=== PATIENT | male | born 1955 | race Caucasian/White ===

== ENCOUNTER → 2017-01-08 | Outpatient (CLI) | payer BC ==
[~2017-01-08] MED LIST: ASPI-435 PO; BRIM0.1S OPB; CHOL200027 PO; GABA-113 PO; GABA600T PO; LEVO125T5 PO; NRN600 PO; PRVC/40 PO; TEST1SOL TOP; [UNRECOGNIZED DRUG - OTHER] PO; [UNRECOGNIZED DRUG - REMARK] SC; desmopressin PO
[2017-01-08 11:08] LABS: BASO % 0.6 %; BASO ABS # 0.05 K/uL (0-0.2); COMPLETE YES; EOS % 1.9 %; HEMATOCRIT 43.2 % (42-52); IG% 0.1 %; LYMPH % 19.9 %; LYMPH ABS # 1.54 K/uL (1.2-3.4); MEAN CELL VOLUME 91.3 fL (80-100); MEAN CORPUSCULAR HEMOGLOBIN 30.4 pg (25-34); MEAN CORPUSCULAR HGB CONC 33.3 g/dl (32-36); MEAN PLATELET VOLUME 11.2 fL (7.4-10.4); MONO % 7.5 %; PLATELET COUNT 268 K/uL (130-400); RED BLOOD COUNT 4.73 M/uL (4.7-6.1); WHITE BLOOD COUNT 7.75 K/uL (4.8-10.8)
[2017-01-08 11:18] LABS: ALT/SGPT 29 U/L (12-78); AST/SGOT 16 U/L (15-37); BLOOD UREA NITROGEN 20 mg/dl (7-18); BUN/CREATININE RATIO 14.4 (10-20); CARBON DIOXIDE 28 mmol/L (21-32); CHLORIDE 107 mmol/L (98-107); CHOLESTEROL 187 mg/dl (0-200); ESTIMATED AVERAGE GLUCOSE 114 mg/dl; GLUCOSE 124 mg/dl (70-99); HA1C FLAG Normal (Normal); POTASSIUM 4.1 mmol/L (3.5-5.1); SODIUM 142 mmol/L (136-145); TRIGLYCERIDES 192 mg/dl (0-150); VERY LOW DENSITY LIPOPROT CALC 38 mg/dl
[2017-01-08 11:22] LABS: ALB/GLOB RATIO 1.2 (0.9-2); ALKALINE PHOSPHATASE 60 U/L (45-117); CHOLESTEROL/HDL RATIO 2.9; FERRITIN 162.9 ng/ml (8.0-388.0); HDL CHOLESTEROL 65 mg/dl; LDL CHOLESTEROL CALCULATED 84 mg/dl; PROSTATE SPECIFIC ANTIGEN 0.266 ng/ml (0.000-4.000)
[2017-01-08 11:24] LABS: CALCIUM 9.1 mg/dl (8.5-10.1)
--- NOTE | 2017-01-13 09:54 | CODING QUERY MEDICAL NECESSITY ---
CQSUPPORTING DIAGNOSIS NEEDED A supporting diagnosis is required for the test/procedure performed on this patient in order for us to be reimbursed by the patient's insurance. Please provide a supporting diagnosis for the following test/procedure listed below next to the test name along with your signature. *If there is no additional diagnosis for this patient that would support the following test/procedure please document that below next to the test/procedure. Test(s)/Procedure(s) that require a supporting diagnosis: DOS 01/08/17 PROSTATE SPECIFIC TEST (PSA) Provider Signature: Date: Thank you Valentina [facility] Information Management Once completed, please kindly fax back to [phone] For questions please call [phone]
[2017-01-16 01:29] LABS: TESTOSTERONE,TOTAL 564 ng/dL (250-1100)
== END | disposition home or self-care (01) ==
LOC: C.LABBC 07:22
PROVIDERS: ATTEND Internal Medicine
DX: E23.2 Diabetes insipidus (principal); E23.0 Hypopituitarism; R73.9 Hyperglycemia, unspecified; E78.5 Hyperlipidemia, unspecified; E55.9 Vitamin D deficiency, unspecified; D64.9 Anemia, unspecified; Z12.5 Encounter for screening for malignant neoplasm of prostate

== ENCOUNTER → 2017-02-20 | Outpatient (CLI) | payer BC ==
--- NOTE | 2017-02-25 09:40 | CODING QUERY MEDICAL NECESSITY ---
SUPPORTING DIAGNOSIS NEEDED A supporting diagnosis is required for the test/procedure performed on this patient in order for us to be reimbursed by the patient's insurance. Please provide a supporting diagnosis for the following test/procedure listed below next to the test name along with your signature. *If there is no additional diagnosis for this patient that would support the following test/procedure please document that below next to the test/procedure. Test(s)/Procedure(s) that require a supporting diagnosis: * DXA, BONE DENSITY AXIAL DIAGNOSIS: Provider Signature: Date: Thank you Lucina [employer] Information Management Once completed, please kindly fax back to [phone] For questions please call [phone]
== END | disposition home or self-care (01) ==
LOC: C.MAMM 12:58
PROVIDERS: ATTEND Internal Medicine Endocrinology, Diabetes & Metabolism
DX: E55.9 Vitamin D deficiency, unspecified (principal)

== ENCOUNTER → 2017-02-25 | Outpatient (CLI) | payer BC ==
[2017-03-03 14:18] LABS: ILGF1 Z SCORE MALE -0.8 SD (-2.0 - +2.0)
== END | disposition home or self-care (01) ==
LOC: C.LABPVFM 14:57
PROVIDERS: ATTEND Internal Medicine Endocrinology, Diabetes & Metabolism
DX: D49.7 Neoplasm of unspecified behavior of endocrine glands and other parts of nervous system (principal); E23.0 Hypopituitarism

== ENCOUNTER 2017-12-01 05:34 | Observation (INO) | payer BC, SELFPAY ==
[2017-11-20 08:46] VITALS: BMI 27.0
--- NOTE | 2017-11-20 09:24 | PAT Medication Instructions ---
Service Date Nov 20, 2017. Current Home Medication List Aspirin (Aspirin 81), 1 TAB PO QAM Brimonidine Tartrate (Alphagan P Oph), 1 DROP OPB BID Cholecalciferol (Vitamin D-3), 5,000 UNITS PO QAM Desmopressin Acetate (Ddavp), 0.4 MG PO QAM Hydrocortisone 2.5% (Rectal) (Anusol-Hc 2.5%), 1 APPLN TOP BID PRN for PRN Levothyroxine Sodium (Levothyroxine Sodium), 125 MCG PO QAM Pravastatin Sod (Pravastatin Sodium), 40 MG PO QAM Somatropin (Humatrope), 0.3 MG INH QAM Timolol Maleate (Timolol 0.5% Oph Soln 15 Ml), 1 DROP OPL QAM [Axiron], 1 DOSE TP for AM [Hydrocortisone], 20 MG PO QAM Medication Instructions For Your Scheduled Surgery -Follow your surgeon's instructions for: Aspirin (Aspirin 81), 1 TAB PO QAM -Contact your director of conservation for: Desmopressin Acetate (Ddavp), 0.4 MG PO QAM Somatropin (Humatrope), 0.3 MG INH QAM [Hydrocortisone], 20 MG PO QAM - Hold the following medications 24 hours prior to surgery: [Axiron], 1 DOSE TP for AM Hydrocortisone 2.5% (Rectal) (Anusol-Hc 2.5%), 1 APPLN TOP BID PRN for PRN - Hold the following medications the morning of surgery: Cholecalciferol (Vitamin D-3), 5,000 UNITS PO QAM - Take the following medications the morning of surgery with a sip of water: Brimonidine Tartrate (Alphagan P Oph), 1 DROP OPB BID Levothyroxine Sodium (Levothyroxine Sodium), 125 MCG PO QAM Pravastatin Sod (Pravastatin Sodium), 40 MG PO QAM Timolol Maleate (Timolol 0.5% Oph Soln 15 Ml), 1 DROP OPL QAM - Take the following medications as scheduled the night before surgery: Brimonidine Tartrate (Alphagan P Oph), 1 DROP OPB BID If you have any questions please call us at [phone] or [phone] or [phone]
[2017-11-20 10:28] LABS: BASO % 0.4 %; BASO ABS # 0.03 K/uL (0-0.2); EOS ABS # 0.36 K/uL (0-0.5); HEMATOCRIT 40.8 % (42-52); IG# 0.01 K/uL (0.00-0.02); LYMPH % 19.5 %; LYMPH ABS # 1.42 K/uL (1.2-3.4); MEAN CELL VOLUME 89.9 fL (80-100); MEAN CORPUSCULAR HEMOGLOBIN 30.8 pg (25-34); MEAN CORPUSCULAR HGB CONC 34.3 g/dl (32-36); MEAN PLATELET VOLUME 10.5 fL (7.4-10.4); MONO % 6.7 %; MONO ABS # 0.49 K/uL (0.11-0.59); NEUT % 68.3 %; NEUT ABS # 4.96 K/uL (1.4-6.5); PLATELET COUNT 237 K/uL (130-400); RED CELL DISTRIBUTION WIDTH SD 42.3 fL (36.4-46.3); WHITE BLOOD COUNT 7.27 K/uL (4.8-10.8)
[2017-11-20 10:36] LABS: PTT PATIENT 26.5 SECONDS (21.0-31.0)
[2017-11-20 13:16] LABS: CREATININE 1.09 mg/dl (0.60-1.40)
[2017-11-20 13:17] LABS: CALCIUM 8.6 mg/dl (8.5-10.1); POTASSIUM 4.3 mmol/L (3.5-5.1)
[~2017-12-01] VITALS: Ht 175.3 cm; Wt 82.6 kg
[2017-12-01] VITALS (11 sets, daily range): BP systolic 101–143; BP diastolic 63–94; PULSE 73–100; TEMP 36.2–37.1; O2SAT 94–99; Ht 175.3 cm; Wt 82.6 kg
[~2017-12-01 05:34] MED LIST changes: +AXIRON TP; +DESM1TAB16 PO; -GABA-113 PO; -GABA600T PO; +HYDR2.5C37 TOP; +HYDROCORTISONE PO; -NRN600 PO; +SOMA6INJ INH; -TEST1SOL TOP; +TMPOPS15 OPL; -[UNRECOGNIZED DRUG - OTHER] PO; -[UNRECOGNIZED DRUG - REMARK] SC; -desmopressin PO
[2017-12-01] MEDS ORDERED: LACTATED RINGER'S 1000ML 1,000 ML IV SCH (06:00)
[2017-12-01] MEDS ORDERED: ACETAMINOPHEN 1000 MG/100 ML IV IV ONE (06:48)
[2017-12-01] MEDS ORDERED: FENTANYL CITRATE INJ 50 MCG/1 ML 2 ML VIAL ONE ×2 (06:49→16:30)
[2017-12-01] MEDS ORDERED: MIDAZOLAM HCL 1 MG/ML 2ML VIAL ONE ×2 (06:49→16:30)
[2017-12-01] MEDS ORDERED: LIDOCAINE HCL 2% 2 ML VIAL (20MG/ML) ONE (06:49)
[2017-12-01] MEDS ORDERED: ONDANSETRON INJ 2 MG/ML 2 ML VIAL ONE ×3 (06:49→17:22)
[2017-12-01] MEDS ORDERED: PROPOFOL IV EMULSION 10 MG/ML 20 ML VIAL IV ONE (06:49)
[2017-12-01] MEDS ORDERED: HYDROmorphone INJ 2 MG/ML SYR/VIAL ONE (06:50)
[2017-12-01] MEDS ORDERED: METOCLOPRAMIDE HCL INJ 5 MG/ML 2 ML VIAL ONE (06:56)
[2017-12-01] MEDS ORDERED: LARYING-O-JET KIT (LTA) ONE (06:58)
[2017-12-01] MEDS ORDERED: SODIUM CHLORIDE 0.9% INJ 10 ML VIAL ONE (06:58)
--- NOTE | 2017-12-01 06:58 | History & Physical Bridge Note ---
H&P Re-Evaluation Bridge Note: I have examined the patient, reviewed the History & Physical and in the interval since the performance of the History & Physical I have noted the following changes of clinical significance: Patient requests cautery of several yuen angiomas of chest; consent amended with patient.
[2017-12-01] MEDS ORDERED: LIDOCAINE/EPINEPHRINE 1% 20 ML VIAL ONE ×3 (07:02→15:58)
[2017-12-01] MEDS ORDERED: POVIDONE-IODINE OP SOLN 30 ML BTL ONE (07:02)
[2017-12-01] MEDS ORDERED: BUPIVACAINE 0.25% 30 ML VIAL ONE ×2 (07:32→17:44)
[2017-12-01] MEDS ORDERED: PHENYLEPHRINE 100MCG/ML 5ML SYR ONE ×2 (08:08→17:22)
[2017-12-01] MEDS ORDERED: DiphenhydrAMINE HCL 50 MG/ML VIAL ONE (08:19)
[2017-12-01] MEDS ORDERED: RANITIDINE HCL 25 MG/ML INJ ONE (08:19)
[2017-12-01] MEDS ORDERED: EpHEDrine SULFATE 50MG/5ML SYR ONE ×2 (08:19→17:22)
[2017-12-01] MEDS ORDERED: FENTANYL CITRATE INJ 50 MCG/1 ML 2 ML VIAL IV PRN ×3 (08:30→18:45)
[2017-12-01] MEDS ORDERED: HYDROmorphone INJ 1 MG/ML SYR IV PRN ×3 (08:30→18:45)
[2017-12-01] MEDS ORDERED: ONDANSETRON INJ 2 MG/ML 2 ML VIAL IV PRN ×5 (08:30→18:45)
[2017-12-01] MEDS ORDERED: ATROPINE SULFATE 0.1 MG/ML 5ML SYR IV PRN ×3 (08:30→18:45)
[2017-12-01] MEDS ORDERED: EpHEDrine SULFATE INJ 50 MG/ML AMP IV PRN ×3 (08:30→18:45)
[2017-12-01] MEDS ORDERED: HYDROCORTISONE SOD SUCCINATE 100 MG/2 ML VIAL ONE (08:31)
[2017-12-01] MEDS ORDERED: LIDOCAINE HCL 1% 20 ML VIAL ONE (08:49)
[2017-12-01] MEDS ORDERED: EpINEphrine HCL INJ 1 MG/ML 1ML SYRINGE ONE ×2 (08:49→17:45)
[2017-12-01] MEDS ORDERED: GENTIAN VIOLET TOP SOLN DROP CHARGE TOP ONE (10:39)
[2017-12-01] MEDS ORDERED: NEOSTIGMINE METHYLSULFATE 5 MG/5 ML SYR ONE ×2 (10:47→17:22)
[2017-12-01] MEDS ORDERED: GLYCOPYRROLATE INJ 0.2 MG/ML VIAL ONE ×2 (10:47→17:22)
[2017-12-01] MEDS ORDERED: ROCURONIUM BROMIDE 10 MG/ML 5 ML VIAL IV ONE ×2 (10:47→17:22)
[2017-12-01] MEDS ORDERED: ARTIFICIAL TEARS OP OINT 3.5 GM TUBE ONE (10:47)
[2017-12-01] MEDS ORDERED: BACITRACIN OP OINT 3.5 GM TUBE TOP ONE (10:58)
[2017-12-01] MEDS ORDERED: SODIUM CHLORIDE 0.9% 1000ML 1,000 ML IV SCH (11:56)
--- NOTE | 2017-12-01 11:56 | [facility] Post Operative Brief Note ---
Immediate Operative Summary Operative Date Dec 01, 2017. Pre-Operative Diagnosis -Bilateral Correction Gynecomastia -Encounter For Cosmetic Surgery Post-Operative Diagnosis -Bilateral Correction Gynecomastia -Encounter For Cosmetic Surgery Procedure(s) Performed Bilateral Correction of Gynecomastia, Bilateral Lower Blepharoplasty, Excision of Skin Lesion from Right Baptist, Right Lateral Canthal Area, Right Glabella Area, Cautery of Chest Ramírez Angiomas Surgeon Dr. Alona Calderón Media Clerk Surgeon(s) Shani King PA-C Estimated Blood Loss 50mL Findings Consistent with Post-Op Diagnosis Specimens Fresh: A.) Left Breast Tissue B..) Right Breast Tissue - both specimens sent out of room to lab by [facility] OR micheal at 1032. C.) Facial ramírez hemangiomas Drains MICHAEL x2 Anesthesia Type General Complication(s) none Disposition Disposition: Recovery Room / PACU
[2017-12-01] MEDS ORDERED: METOCLOPRAMIDE HCL INJ 5 MG/ML 2 ML VIAL IV PRN (12:00)
[2017-12-01] MEDS ORDERED: ACETAMINOPHEN 325 MG TAB PO PRN ×2 (12:00→18:45)
[2017-12-01] MEDS ORDERED: OXYCODONE/ACETAMINOPHEN 5-325 TAB PO PRN ×4 (12:00→18:45)
--- NOTE | 2017-12-01 12:03 | Discharge Instructions ---
Discharge Instructions Date of Service Dec 01, 2017. Admission Reason for Admission: Gynecomastia, Idermatochalasis, Encounter For Cosm Discharge Discharge Diagnosis / Problem: gynecomastia, dermatochalasis Discharge Goals Goal(s): Decrease discomfort, Improve function Activity Recommendations Activity Limitations: per Instructions/Follow-up section ACTIVITY RECOMMENDATIONS: __Normal activities _x_No bending, lifting or straining. Keep head elevated when sleeping. __No driving __Driving allowed when you are off pain medications _x_Walking permitted __You should have help at home for ___ days DRESSINGS: __No dressings required _x_Keep dressings (on chest) dry/in place until first office visit. Must wear abdominal binder __Remove dressings ___ and leave dressings off _x_Apply ice _3__ days to eyes. 20 minutes on/20 minutes off while awake. Do not ice chest. __Remove dressings and reapply garment _x_Apply antibiotic ointment (bacitracin ophthalmic) to eyes 3-4 times/day until gone BATHING: _x_Keep dressings dry _x_Sponge bathing permitted __Showering permitted _x_No swimming, hot tubs or soaking in a tub MEDICATIONS: Resume previous medications unless instructed otherwise by your surgeon. _x_Do not use aspirin, Motrin, Advil or Ibuprofen as these may promote bleeding. Please use Tylenol. _x_Prescription(s) provided: pain medication and antibiotic eye ointment were prescribed for you OTHER INSTRUCTIONS: _x_Record drain output 2-3 times per day. Drains are ready to be removed when output is less than 10cc/24 hours SPECIAL CARE INSTRUCTIONS: * It is normal to have a mild fever after surgery. If your temperature is higher than 101.5 degrees F, please call the office at [phone]. * Constipation is a typical side effect of pain medication. An over-the- counter stool softener will help relieve this. * Leaking around surgical drains may occur and should not cause concern. Sometimes these drains become clogged. If this happens, remove the bulb and milk the clot out of the tube, then replace the bulb. * Drainage from wounds after liposuction is normal and should be expected. Garments will become soiled. You should protect furniture and bedding. This drainage should mostly subside within 2-3 days. Leave garments in place unless instructed to remove them. * If you have unusual drainage from a wound or are concerned you have an infection or have any questions or concerns, please call the office at [phone]. FOLLOW UP VISIT: If not already scheduled, please call the office, , when you return home after surgery to schedule an appointment to be seen in _2__ days. . Current Hospital Diet Patient's current hospital diet: Discharge Diet Recommended Diet: Regular Diet Procedures Procedures Performed: Bilateral Correction of Gynecomastia, Bilateral Lower Blepharoplasty, Excision of Skin Lesion from Right Advent, Right Lateral Canthal Area, Right Glabella Area, Cautery of Chest Ramírez Angiomas Pending Studies Studies pending at discharge: yes List of pending studies: pathology Medical Emergencies . Who to Call and When: Medical Emergencies: If at any time you feel your situation is an emergency, please call 911 immediately. . Non-Emergent Contact Non-Emergency issues call your: Primary Care Provider, Surgeon . "Provider Documentation" section prepared by Shani King. . [place] Drug Monitoring Program Search Results: no issues identified
--- NOTE | 2017-12-01 12:56 | Anesthesiology Progress Note ---
Anesthesia Post Op Note Date & Time Dec 01, 2017 at 12:56 Vital Signs Pain Intensity: 0 Vital Signs Past 12 Hours Date Time Temp Pulse Resp B/P (MAP) Pulse Ox O2 Delivery O2 Flow Rate FiO2 12/01/17 12:50 86 15 145/89 96 Room Air 12/01/17 12:40 88 11 145/95 94 Room Air 12/01/17 12:30 83 12 144/90 99 Oxymask 10 12/01/17 12:20 85 19 158/91 99 Oxymask 10 12/01/17 12:10 36.5 87 16 132/93 98 Oxymask 10 12/01/17 05:45 36.8 73 18 137/94 (108) 96 Room Air Notes Mental Status: alert / awake / arousable, participated in evaluation Pt Amnestic to Procedure: Yes Nausea / Vomiting: adequately controlled Pain: adequately controlled Airway Patency, RR, SpO2: stable & adequate BP & HR: stable & adequate Hydration State: stable & adequate Anesthetic Complications: no major complications apparent
--- NOTE | 2017-12-01 13:52 | Progress Note ---
Progress Note Date of Service Dec 01, 2017. Progress Note Post op check Called to see patient in PACU regarding nipple color. No complaints reported afebrile VSS Dressings clean, both NAC's pink and viable No hematomas noted JPs intact with minimal drainage Bilateral lower lid incisions intact Doing well Plan to discharge home
--- NOTE | 2017-12-01 14:35 | OPERATIVE REPORT ---
DATE OF OPERATION: 12/01/2017 PREOPERATIVE DIAGNOSES: Bilateral lower eyelid dermatochalasis, bilateral gynecomastia, multiple Ramírez angiomas face and chest, desire for cosmetic improvement. POSTOPERATIVE DIAGNOSES: Same. PROCEDURE: Bilateral correction of gynecomastia, bilateral lower blepharoplasty, excision of hemangiomas x4 of the face, cautery of Ramírez angiomas right chest x4. SURGEON: Dr. Alona Calderón. PHOTOGRAPHIC PROCESS SCREEN MAKER: Shani King PA-C. ANESTHESIA: General. COMPLICATIONS: None. INDICATION FOR THE PROCEDURE: The patient is a 62-year-old male who presented to my office desiring cosmetic improvement of the above-mentioned concerns. The procedure was reviewed including risks, benefits and the patient desired to proceed. BRIEF DESCRIPTION OF THE PROCEDURE: The patient was identified and marked in the preoperative holding area. He was brought to the operating room where he was positioned supine and placed under anesthesia without incident. Surgical site was prepped and draped sterilely. A time-out procedure was performed. I began with the chest. Surgical site was prepped and draped sterilely. I began with cautery of the 4 Ramírez angiomas of the chest using a needle tip cautery set at 20:20. Following this, 1% lidocaine with epinephrine was used to anesthetize the breast parenchyma as well as the planned infra-areolar incisions bilaterally. I began with the left side. A 15 blade scalpel was used to make the inferior areolar incision with small extension onto the chest bilaterally. Incision was deepened using electrocautery. I then began elevation of the nipple-areolar complex, leaving approximately 1 cm of breast tissue behind to provide some projection of the nipple. Underlying breast tissue was resected using electrocautery. I began by performing excision of the inferomedial and inferolateral quadrants of the breast using a lighted retractor and Allis clamp as well as electrocautery. Hemostasis was achieved throughout the dissection. I then began resection of the superior breast tissue taking care to leave about 1 cm of underlying fat and breast tissue underneath the skin to prevent contour deformities. Once I felt the residual breast parenchyma had been removed, I proceeded to do a similar procedure on the right side. However, following this portion of the procedure, I felt that while the breast tissue had been removed, there was a step off present in virtually all directions. Therefore, I elected to perform liposuction to help fan out this area and smooth out any contour irregularities surrounding the resection. I used a 67 mL of tumescent fluid on the left side and approximately 70 mL on the right side. A 2.4 mm liposuction cannula was used to pretunnel the surrounding areas in a radial fashion and then suction was applied. Approximately 75 mL were aspirated from each side. The inframammary fold was elevated using electrocautery. Hemostasis was assured with use of electrocautery. The wound was irrigated with saline. A 15-Citizen Of [place] Chuckie drain was placed in the wound bed and brought out through one of the liposuction access incisions. Sutured into place using 3-0 nylon suture. Wound was reapproximated using 3-0 Vicryl interrupted dermal sutures and 4-0 Monocryl running subcuticular suture. Following this procedure, there was good contour of the chest. The patient was placed in a seated position with excellent improvement. There was excellent improvement in contour and no discrete palpable excess tissue. The wound was closed similarly on the right side. Following this, [place] foam was placed for both surgical sites and an abdominal binder was placed around the chest. Drapes were removed and we then prepared for the lower blepharoplasty portion of the procedure. The surgical site was prepped and draped sterilely. A new time-out procedure was performed. I began by remarking the planned hemangioma excisions on the glabella, right lateral canthal area, and right pentecostal. These were each injected with 1% lidocaine with epinephrine. I marked the planned incisions on the lower lids. These were placed, 2 mm below and parallel to the ciliary margin with a short lateral canthal extension. Attention was first turned to the right eyelid. Corneal protectors were placed. The lower lid was infiltrated using 1% lidocaine with epinephrine. A 15 blade scalpel made the lateral aspect of the subciliary incision and the remainder of the incision was completed using a curved iris scissor. The skin muscle flap was then raised off the orbital septum, taking care to keep the pretarsal orbicularis muscle in place. This muscle flap was then raised to the level of the orbital septum. The septum was then incised to expose medial, central and lateral fat compartments. Fat was carefully teased out of each of this compartment taking care not to over resect. Once this was accomplished, the planned skin resection was marked. This was accomplished by redraping the lower lid skin over the septum and taking conservative strip of skin measuring about 2 mm. I elected to remove skin only at this portion and leave the septal orbicularis in place. Next, a lateral canthopexy was performed suspending the orbicularis muscle to the lateral orbital rim using 5-0 PDS mattress suture. After placing a canthopexy suture, I then proceeded to close the remainder of the lower eyelid incision with 6-0 nylon interrupted sutures. The same procedure was undertaken on the left lower lid. Following this, simple excision was performed of the above-mentioned lesions. This was accomplished using 15 blade scalpel to make a very small elliptical incision and these were resected with underlying subcutaneous fat. Hemostasis was achieved with needle tip cautery. Each of these wounds closed using two 6-0 nylon interrupted sutures. It should be noted that the electrocautery was turned onto a setting of 12 and 12 for the blepharoplasty and excision of the skin lesions. The procedure was tolerated well. Corneal protectors were removed. Eyes were irrigated with balanced salt solution. Ophthalmic ointment was placed in the incisions. The patient was awakened and transferred to recovery in satisfactory condition. I attest to the content of the Intraoperative Record and any orders documented therein. Any exception s are noted below.
--- NOTE | 2017-12-01 16:18 | History & Physical Bridge Note ---
H&P Re-Evaluation Bridge Note: I have examined the patient, reviewed the History & Physical and in the interval since the performance of the History & Physical I have noted the following changes of clinical significance: Plan was for patient to be discharged this afternoon; nurse notified me of expanding hematoma right chest when she checked on him prior to discharge. This occurred over a 30 minute period of time. On exam, there is a sizeable hematoma of the right breast with ecchymosis. Bedside exploration showed clot and bright red bleeding suggesting active bleed. Mild hypotension (78/60) resolved with fluid. Discussed with patient that best course of action is washout in OR to visualize whether there is active bleeding. He agrees.
[2017-12-01] MEDS ORDERED: PHENYLEPHRINE 100MCG/ML 5ML SYR IV PRN ×2 (17:15→18:45)
[2017-12-01] MEDS ORDERED: PROMETHAZINE HCL INJ 12.5 MG in SODIUM CHLORIDE 0.9% 50ML 50 ML IV PRN ×3 (17:15→18:45)
[2017-12-01] MEDS ORDERED: TISSEEL FIBRIN SEALANT 4ML TOP ONE (18:07)
--- NOTE | 2017-12-01 18:32 | [facility] Post Operative Brief Note ---
Immediate Operative Summary Operative Date Dec 01, 2017. Pre-Operative Diagnosis Right breast hematoma Post-Operative Diagnosis Right breast hematoma Procedure(s) Performed Exploration and washout of right breast hematoma Surgeon Dr. Calderón Instructor Decorating Surgeon(s) None Estimated Blood Loss 250ml Findings Consistent with Post-Op Diagnosis 250 cc hematoma clotted and active pectoralis muscle bleeder Specimens none Drains None replaced right MICHAEL Anesthesia Type General Complication(s) none Disposition Disposition: Recovery Room / PACU
[2017-12-01] MEDS ORDERED: DiphenhydrAMINE HCL 50 MG/ML VIAL IV PRN (18:45)
[2017-12-01] MEDS ORDERED: MoRPHine SULFATE 2 MG/ML CARP IV PRN (18:45)
[2017-12-01] MEDS ORDERED: STERILE IRRIGATING SOLUTION (BSS) 15ML OP PRN (18:45)
[2017-12-01] MEDS ORDERED: IV FLUIDS COMPLETED PRN (19:00)
--- NOTE | 2017-12-01 19:16 | Anesthesiology Progress Note ---
Anesthesia Post Op Note Date & Time Dec 01, 2017 at 19:15 Vital Signs Pain Intensity: 0 Vital Signs Past 12 Hours Date Time Temp Pulse Resp B/P (MAP) Pulse Ox O2 Delivery O2 Flow Rate FiO2 12/01/17 18:55 73 16 93/60 (73) 96 Nasal Cannula 2 12/01/17 18:45 73 17 95/60 (69) 99 Nasal Cannula 3 12/01/17 18:35 37.0 85 16 84/55 (67) 98 Nasal Cannula 3 12/01/17 16:00 88 18 113/68 95 Room Air 12/01/17 15:05 100 18 132/86 96 Room Air 12/01/17 14:30 37.1 92 18 138/75 96 Room Air 12/01/17 14:00 94 18 143/81 96 Room Air 12/01/17 13:30 36.5 85 18 134/78 94 Room Air 12/01/17 13:20 36.4 83 12 141/77 94 Room Air 12/01/17 13:10 93 15 142/91 96 Room Air 12/01/17 13:00 81 13 148/88 95 Room Air 12/01/17 12:50 86 15 145/89 96 Room Air 12/01/17 12:40 88 11 145/95 94 Room Air 12/01/17 12:30 83 12 144/90 99 Oxymask 10 12/01/17 12:20 85 19 158/91 99 Oxymask 10 12/01/17 12:10 36.5 87 16 132/93 98 Oxymask 10 Notes Mental Status: alert / awake / arousable, participated in evaluation Pt Amnestic to Procedure: Yes Nausea / Vomiting: adequately controlled Pain: adequately controlled Airway Patency, RR, SpO2: stable & adequate BP & HR: stable & adequate Hydration State: stable & adequate Anesthetic Complications: no major complications apparent Awake, doing well, no complaints. VSS
[2017-12-01] MEDS: CEFAZOLIN IV 2,000 MG in SYRINGE 0 ML IV SCH (20:25)
[2017-12-01] MEDS: LACTATED RINGER'S 1000ML 1,000 ML IV SCH (22:42)
[2017-12-02 03:55] VITALS: BP 120/73; PULSE 78; TEMP 37.1; O2SAT 97
[2017-12-02] MEDS: LACTATED RINGER'S 1000ML 1,000 ML IV SCH (04:13)
[2017-12-02] MEDS: CEFAZOLIN IV 2,000 MG in SYRINGE 0 ML IV SCH (04:13)
--- NOTE | 2017-12-02 07:29 | Surgery Progress Note ---
Surgery Progress Note Date of Service Dec 02, 2017. Subjective Post OP Day: 1 + feeling well, + pain controlled Objective Vital Signs: Date Time Temp Pulse Resp B/P (MAP) Pulse Ox O2 Delivery O2 Flow Rate FiO2 12/02/17 03:55 37.1 78 16 120/73 (89) 97 Room Air 12/01/17 22:45 36.7 76 16 101/63 (76) 99 Nasal Cannula 2.0 12/01/17 21:45 36.2 85 16 103/68 (80) 99 Nasal Cannula 2.0 12/01/17 20:45 36.9 84 16 113/69 (84) 99 Nasal Cannula 2.0 12/01/17 20:45 Nasal Cannula 2.0 12/01/17 20:15 36.8 91 16 125/82 (96) 98 Nasal Cannula 2.0 12/01/17 19:45 97 Nasal Cannula 2.0 12/01/17 19:45 36.7 80 16 108/65 (79) 97 Nasal Cannula 2.0 12/01/17 19:30 80 17 94/59 (65) 97 Nasal Cannula 2 12/01/17 19:15 37.4 73 19 96/63 (67) 97 Nasal Cannula 2 12/01/17 19:05 83 19 91/67 (73) 97 Nasal Cannula 2 12/01/17 18:55 73 16 93/60 (73) 96 Nasal Cannula 2 12/01/17 18:45 73 17 95/60 (69) 99 Nasal Cannula 3 12/01/17 18:35 37.0 85 16 84/55 (67) 98 Nasal Cannula 3 12/01/17 16:00 88 18 113/68 95 Room Air 12/01/17 15:05 100 18 132/86 96 Room Air 12/01/17 14:30 37.1 92 18 138/75 96 Room Air 12/01/17 14:00 94 18 143/81 96 Room Air 12/01/17 13:30 36.5 85 18 134/78 94 Room Air 12/01/17 13:20 36.4 83 12 141/77 94 Room Air 12/01/17 13:10 93 15 142/91 96 Room Air 12/01/17 13:00 81 13 148/88 95 Room Air 12/01/17 12:50 86 15 145/89 96 Room Air 12/01/17 12:40 88 11 145/95 94 Room Air 12/01/17 12:30 83 12 144/90 99 Oxymask 10 12/01/17 12:20 85 19 158/91 99 Oxymask 10 12/01/17 12:10 36.5 87 16 132/93 98 Oxymask 10 Physical Exam: Chuckie drainage (bloody and serous output 15-R 5-L last shift) General Appearance: WD/WN, no apparent distress Incision(s): clean, dry, intact, no erythema, findings (no evidence of recurrent hematoma right breast, mild ecchymosis as expected lower eyelids) Assessment & Plan s/p bilateral lower blepharoplasty, excision multiple facial lesions and correction of bilateral gynecomastia, evacuation of hematoma POD#1 VSS, tolerated regular diet No evidence of recurrent hematoma D/C home today, follow-up in office tomorrow
[2017-12-02 07:30] VITALS: BP 120/73; PULSE 78; TEMP 37.1; O2SAT 97
--- NOTE | 2017-12-02 07:41 | Anesthesiology Progress Note ---
Anesthesia Post Op Note Date & Time Dec 02, 2017 at 07:41 Vital Signs Pain Intensity: 1.0 Vital Signs Past 12 Hours Date Time Temp Pulse Resp B/P (MAP) Pulse Ox O2 Delivery O2 Flow Rate FiO2 12/02/17 07:30 37.1 78 16 97 Room Air 12/02/17 03:55 37.1 78 16 120/73 (89) 97 Room Air 12/01/17 22:45 36.7 76 16 101/63 (76) 99 Nasal Cannula 2.0 12/01/17 21:45 36.2 85 16 103/68 (80) 99 Nasal Cannula 2.0 12/01/17 20:45 36.9 84 16 113/69 (84) 99 Nasal Cannula 2.0 12/01/17 20:45 Nasal Cannula 2.0 12/01/17 20:15 36.8 91 16 125/82 (96) 98 Nasal Cannula 2.0 12/01/17 19:45 97 Nasal Cannula 2.0 12/01/17 19:45 36.7 80 16 108/65 (79) 97 Nasal Cannula 2.0 Notes Mental Status: alert / awake / arousable, participated in evaluation Pt Amnestic to Procedure: Yes Nausea / Vomiting: adequately controlled Pain: adequately controlled Airway Patency, RR, SpO2: stable & adequate BP & HR: stable & adequate Hydration State: stable & adequate Anesthetic Complications: no major complications apparent
[2017-12-02 07:56] VITALS: BP 120/80; PULSE 79; TEMP 37; O2SAT 98
[2017-12-02] MEDS ORDERED: MULTIVITAMIN TAB PO SCH (09:00)
--- NOTE | 2017-12-02 09:58 | OPERATIVE REPORT ---
DATE OF OPERATION: 12/01/2017 PREOPERATIVE DIAGNOSIS: Hematoma, right breast. POSTOPERATIVE DIAGNOSIS: Same. PROCEDURE: Evacuation of hematoma and exploration, right breast. SURGEON: Dr. Alona Calderón. WEBSPHERE ADMINISTRATOR: None. ANESTHESIA: General. COMPLICATIONS: None. INDICATION FOR THE PROCEDURE: The patient is a 62-year-old male who earlier today underwent bilateral lower blepharoplasty and bilateral correction of gynecomastia. He did well postoperatively and was seen in the PACU without any evidence of hematoma. He was transferred back to the [facility] and as the nurse was preparing him for discharge, she noted that about a 30-minute period, he had rapid and progressive swelling of the right breast. She notified me and at the time I evaluated the patient, he was noted to have some brief episodes of hypotension, complained of diaphoresis and had significant drainage from his right MICHAEL drain, which was both clotted and fresh bleeding. I initially attempted to open a portion of the incision at the bedside and active red bleeding was noted. Therefore, a decision was made to return to the operating room. BRIEF DESCRIPTION OF THE PROCEDURE: Risks, benefits, and alternatives of the procedure were explained to the patient who agreed and signed consent. He was brought to the operating room where he was positioned supine and placed under anesthesia without incident. The right breast was prepped and draped sterilely. A time-out procedure was performed. The right infra-areolar incision was reopened after sutures were removed. Upon entry into the pocket, large amounts of clotted blood were identified, which were evacuated manually and there was an active red bleeding noted. The pocket was copiously irrigated with warm normal saline in an effort to identify the source of bleeding. Several small oozing areas were noted. However, the source of active bleeding was identified within the pectoralis major muscle and appeared to be one of the small vessels perfusing the muscle. Once this was identified, control was unable to be obtained using cautery and therefore, 2-0 Vicryl suture ligature was placed. This resolved the bleeding. Pocket was continually irrigated until the fluid was clear. There were some very small little oozing areas, which were cauterized. This appeared to be consistent with likely oozing of tumescent fluid from liposuction more so than active bleeding. Once I was satisfied with the hemostasis, I sprayed the pocket with 4 mL of Tisseel. Prior to this, the MICHAEL drain was exchanged for a fresh drain. Once the Tisseel was sprayed, manual pressure was held. The wound was reapproximated using 3-0 Vicryl interrupted dermal sutures and a 4-0 Monocryl running subcuticular suture. Dermabond was applied. Fresh dressings were placed to both breasts, which consisted of 4 x 4's and Sidon foam followed by an abdominal binder. I would estimate about 250 mL of active and clotted blood was removed. The procedure was tolerated well. The patient was extubated and transferred to recovery in satisfactory condition. I attest to the content of the Intraoperative Record and any orders documented therein. Any exceptions are noted below. FLETCHER
--- NOTE | 2017-12-02 14:10 | Discharge Summary ---
Discharge Summary Date of Service Dec 02, 2017. Admission Date/Reason Dec 01, 2017 at 18:43 Gynecomastia, Idermatochalasis, Encounter For Cosm. Discharge Date/Disposition Dec 02, 2017 Home Diagnosis Principal Diagnosis: gynecomastia, dermatochalasis Secondary Diagnoses/Problems: hematoma Procedure(s) Performed bilateral correction of gynecomastia, bilateral lower blepharoplasty, excision of multiple facial lesions, evacuation of hematoma Medication Reconciliation Continued Medications: Brimonidine Tartrate (Alphagan P Oph) 0.1 % Eulalia 1 DROP OPB BID, BTL Cholecalciferol (Vitamin D-3) 2,000 Unit Tab 5000 UNITS PO QAM Desmopressin Acetate (Ddavp) 0.2 Mg Tab 0.4 MG PO QAM Hydrocortisone 2.5% (Rectal) (Anusol-Hc 2.5%) 2.5 % Cre 1 APPLN TOP BID PRN for PRN for 7 Days, #30 GM Levothyroxine Sodium (Levothyroxine Sodium) 125 Mcg Tab 125 MCG PO QAM Pravastatin Sod (Pravastatin Sodium) 40 Mg Tab 40 MG PO QAM Somatropin (Humatrope) 6 Mg Inj 0.3 MG INH QAM Timolol Maleate (Timolol 0.5% Oph Soln 15 Ml) 15 Ml Soln 1 DROP OPL QAM [Axiron] () 1 DOSE TP PRN for AM 1 SQUIRT EACH AXILLA [Hydrocortisone] () 20 MG PO QAM Discontinued Medications: Aspirin (Aspirin 81) 81 Mg Tab 1 TAB PO QAM Admission Physical Exam As per Admitting History & Physical. Hospital Course Patient presented to [facility] with history of gynecomastia, dermatochalasis of his lower eyelids and multple facial lesions. He was taken to the OR and underwent bilateral correction of gynecomastia, bilateral lower blepharoplasty and excision of multiple facial lesions. He tolerated the procedure well and was taken to recovery. He was observed in the PACU for 2 hours and discovered to have significant swelling in his right breast just prior to discharge. On exam, he was hypotensive and noted to have hematoma of the right breast. His incision was open and significant bright red blood was noted. He was given IV bolus and returned to the OR for evacuation of hematoma. 250cc of hematoma was removed and an actively bleeding blood vessel was cauterized. No bleeding was noted at the end of surgery. He was transferred to med/surg for observation. On POD#1, there was no evidence of recurrent or new hematoma. His incisions were CDI, mild ecchymosis of lower eyelids as expected. VSS. MICHAEL drains with 15/5 cc of bloody and serous output was recorded in the last shift from right and left drains. He was discharged home with instructions to follow-up in the office in one day. Discharge Instructions Please refer to the electronic Patient Visit Report (Discharge Instructions) for additional information.
== END 2017-12-02 09:50 | disposition home or self-care (01) ==
LOC: C.ACU 05:34 → C.MSW 18:43 → ENRESERV 19:11
PROVIDERS: ADMIT Plastic Surgery; ATTEND Plastic Surgery
DX: N62 Hypertrophy of breast (principal); H02.835 Dermatochalasis of left lower eyelid; H02.832 Dermatochalasis of right lower eyelid; D18.01 Hemangioma of skin and subcutaneous tissue; L76.01 Intraoperative hemorrhage and hematoma of skin and subcutaneous tissue complicating a dermatologic procedure; E78.5 Hyperlipidemia, unspecified; Z98.890 Other specified postprocedural states; Z79.82 Long term (current) use of aspirin; Z79.899 Other long term (current) drug therapy; Z83.3 Family history of diabetes mellitus; H40.9 Unspecified glaucoma

== ENCOUNTER → 2018-01-21 | Outpatient (CLI) | payer BC, SELFPAY ==
[~2018-01-21] MED LIST changes: -ASPI-435 PO
[2018-01-21 09:37] LABS: BASO % 0.5 %; BASO ABS # 0.05 K/uL (0-0.2); EOS % 4.7 %; EOS ABS # 0.44 K/uL (0-0.5); HEMATOCRIT 41.6 % (42-52); HEMOGLOBIN 14.2 g/dL (14.0-18.0); IG# 0.02 K/uL (0.00-0.02); LYMPH % 16.8 %; LYMPH ABS # 1.59 K/uL (1.2-3.4); MEAN CELL VOLUME 91.2 fL (80-100); MEAN CORPUSCULAR HEMOGLOBIN 31.1 pg (25-34); MEAN CORPUSCULAR HGB CONC 34.1 g/dl (32-36); MONO % 8.3 %; MONO ABS # 0.78 K/uL (0.11-0.59); NEUT % 69.5 %; NEUT ABS # 6.56 K/uL (1.4-6.5); PLATELET COUNT 259 K/uL (130-400); RED CELL DISTRIBUTION WIDTH CV 13.5 % (11.5-14.5); RED CELL DISTRIBUTION WIDTH SD 44.9 fL (36.4-46.3); WHITE BLOOD COUNT 9.44 K/uL (4.8-10.8)
[2018-01-21 10:08] LABS: ALBUMIN 3.7 gm/dl (3.4-5.0); ALT/SGPT 32 U/L (12-78); AST/SGOT 21 U/L (15-37); BLOOD UREA NITROGEN 26 mg/dl (7-18); CALCIUM 8.9 mg/dl (8.5-10.1); CARBON DIOXIDE 25 mmol/L (21-32); CHOLESTEROL 210 mg/dl (0-200); CREATININE 1.17 mg/dl (0.60-1.40); GLUCOSE 103 mg/dl (70-99); HEMOGLOBIN A1C 5.2 % (4.5-5.6); SODIUM 141 mmol/L (136-145)
[2018-01-21 10:11] LABS: ALKALINE PHOSPHATASE 68 U/L (45-117); LDL CHOLESTEROL CALCULATED 115 mg/dl; TOTAL PROTEIN 6.9 gm/dl (6.4-8.2)
[2018-01-21 10:17] LABS: T3 FREE 3.43 pg/ml (2.30-4.20)
== END | disposition home or self-care (01) ==
LOC: C.LAB1850 08:11
PROVIDERS: ATTEND Internal Medicine Endocrinology, Diabetes & Metabolism
DX: E78.5 Hyperlipidemia, unspecified (principal); D64.9 Anemia, unspecified; E27.49 Other adrenocortical insufficiency; E55.9 Vitamin D deficiency, unspecified; R73.9 Hyperglycemia, unspecified; E23.2 Diabetes insipidus; D49.7 Neoplasm of unspecified behavior of endocrine glands and other parts of nervous system; E23.0 Hypopituitarism; E03.9 Hypothyroidism, unspecified